=== PATIENT | female | born 1955 | race Caucasian/White ===

== ENCOUNTER → 2017-08-08 | Outpatient (CLI) | payer OTHER ==
--- NOTE | 2017-08-08 13:39 | RADIOLOGY REPORT (SQ) ---
EXAM DESCRIPTION: MRI LT LOWER JOINT WITHOUT COMPLETED DATE/TIME: 08/08/2017 10:34 am REASON FOR STUDY: PAIN IN LEFT ANKLE AND JOINTS OF LEFT FOOT (M25.572) M25.572 PAIN IN LEFT ANKLE A ND JOINTS OF LEFT FOOT COMPARISON: Left foot films 09/21/2010 TECHNIQUE: Left ankle images acquired and stored on PACS. Multiplanar images include fat sensitive s equences as T1, fluid sensitive sequences as FST2/STIR, cartilage sensitive sequences as FSPD, and gr adient echo sequences. LIMITATIONS: None. FINDINGS: BONE MARROW: No alteration of signal to suggest marrow replacement. No occult fracture. No large osteophytes. 6 mm area of subcortical cyst formation medial talar dome coronal image 15. EFFUSIONS: No subtalar or tibiotalar effusions. No loose bodies. 9 mm ganglion cyst protruding off t he dorsal aspect of the posterior subtalar joint best shown on sagittal image 10 OSSEOUS ARTICULATIONS: Normal tibiotalar, subtalar, talonavicular and calcaneocuboid joints. TALAR DOME AND TIBIAL PLAFOND: 6 mm area of subcortical edema/subcortical cyst formation along the me dial edge right talar dome coronal image 14. ACHILLES TENDON: Intact without partial or full-thickness tear. No adjacent bursal fluid or edema. TIBIALIS ANTERIOR TENDON: Intact without edema at the 1st MT attachment. TIBIALIS POSTERIOR TENDON: There is fluid in the tibialis posterior tendon sheath proximal to the med ial malleolus on sagittal image 6. At the level of and distal to the medial malleolus, the tibialis posterior tendon is thickened and diffusely high in signal with surrounding inflammatory change from tendinopathy. This best shown on axial images 15-20, and sagittal image 4. FLEXOR HALLUCIS LONGUS AND FLEXOR DIGITORUM TENDONS: Normal morphology. Small amount of flexor hallu cis longus tendon sheath fluid. No edema of the os trigonum. PERONEUS LONGUS AND BREVIS TENDON: Normal morphology and no tendon sheath fluid. No subluxation. ATFL, CFL, PTFL: Anterior talofibular ligament is not seen, torn. Other ligaments are intact DELTOID LIGAMENT: Visualized components intact. TARSAL TUNNEL: No masses. No muscle atrophy. SINUS TARSI: No fluid. No reactive marrow edema or erosions. PLANTAR FASCIA: Small plantar calcaneal spur. No plantar fascia thickening or edema ADJACENT SOFT TISSUES: No masses. OTHER: The spring ligament is indistinct, with edema along and expected location best shown on knowles l image 12 and sagittal images 7-10 IMPRESSION: Tibialis posterior tendinopathy distal to the medial malleolus Spring ligament injury TECHNICAL DOCUMENTATION: JOB ID: [id number] [email or web address]- All Rights Reserved
== END ==
LOC: RAD 09:34
PROVIDERS: ATTEND Physician Assistant
DX: M25.572 Pain in left ankle and joints of left foot (principal)